=== PATIENT | female | born 2005 ===

== ENCOUNTER 2025-02-19 13:52 | Outpatient (CLI) | payer OTHER | END 2025-02-19 13:54 | disposition home or self-care (01) | LOC: PRENATAL 13:52 | PROVIDERS: ATTEND Obstetrics & Gynecology Maternal & Fetal Medicine | DX: O44.00 Complete placenta previa NOS or without hemorrhage, unspecified trimester (principal); Z3A.20 20 weeks gestation of pregnancy ==

== ENCOUNTER 2025-05-12 13:44 | Outpatient (CLI) | payer OTHER | END 2025-05-12 13:47 | disposition home or self-care (01) | LOC: PRENATAL 13:44 | PROVIDERS: ATTEND Obstetrics & Gynecology Maternal & Fetal Medicine | DX: O35.3XX0 Maternal care for (suspected) damage to fetus from viral disease in mother, not applicable or unspecified (principal); O44.00 Complete placenta previa NOS or without hemorrhage, unspecified trimester; Z3A.32 32 weeks gestation of pregnancy ==

== ENCOUNTER 2025-06-29 19:31 | Inpatient (IN) | payer OTHER ==
[~2025-06-29] VITALS: Ht 167.6 cm; Wt 69.9 kg
[2025-06-29 19:46] VITALS: BP 110/71
[2025-06-29 20:54] LABS: BASO % 0.3 % (0.1-1.2); EOS # 0.02 (0.04-0.54); EOS % 0.2 % (0.7-7.0); LYMPH # 1.66 (1.18-3.74); LYMPH % 15.3 % (19.3-53.1); MEAN PLATELET VOLUME 10.90 fl (9.4-12.4); MONO # 0.85 (0.24-0.82); MONO % 7.8 % (4.7-12.5); NEUT # 8.29 (1.56-6.13); NEUT % 76.1 % (34.0-71.1); RED CELL DISTRIBUTION WIDTH 12.5 % (11.6-14.4); URINE APPEARANCE Clear; URINE BILIRRUBIN Negative (NEGATIVE); URINE BLOOD Negative; URINE COLOR Yellow; URINE GLUCOSE Negative (NEGATIVE); URINE KETONE 15 (NEGATIVE); URINE LEUKOCYTE Negative; URINE NITRATE Negative; URINE PROTEIN Trace (NEGATIVE); URINE UROBILINOGEN 1.0 E.U./dl
[2025-06-29 20:58] LABS: URINE BACTERIA 748.7 uL (0.0-1933); URINE EPITHELIAL CELLS 46.3 uL (0.0-38.8); URINE RBC 13.3 uL (0.0-20.8); URINE WBC 15.0 uL (0.0-23.2)
[2025-06-29 21:08] LABS: URINE CAST 0.14 uL (0.0-1.40)
[2025-06-29 21:11] LABS: URINE MUCUS MODERATE
[2025-06-29 21:12] LABS: TYPE CELLS SQUAMOUS
[2025-06-29 21:15] LABS: INR < 0.93
[2025-06-29] MEDS ORDERED: MISOPROSTOL 25 MCG TABLET VAG STA (22:08)
[2025-06-29 23:27] VITALS: BP 117/70
[2025-06-30 04:00] VITALS: BP 120/75
[2025-06-30] MEDS ORDERED: ERYTHROMYCIN BASE OPHT 1GM EACH TUBE OP ONE (04:35)
[2025-06-30] MEDS ORDERED: LIDOCAINE HCL 1% 10ML VIAL ONE (04:35)
[2025-06-30] MEDS ORDERED: CHLORHEXIDINE GLUCONATE 120 ML BOTTLE TOP ONE (04:35)
[2025-06-30] MEDS ORDERED: OXYTOCIN 20 UNITS/1000ML RL PIGGYBAG IV ONE (04:35)
[2025-06-30] MEDS ORDERED: OXYTOCIN 1,000 ML IV SCH (07:00)
[2025-06-30] MEDS ORDERED: CHLORHEXIDINE GLUCONATE 120 ML BOTTLE TP SCH (07:00)
[2025-06-30] MEDS ORDERED: ACETAMINOPHEN 500 MG GEL..CAP PO PRN (07:00)
[2025-06-30 07:01] VITALS: BP 119/51
[2025-06-30 07:46] VITALS: BP 127/73
[2025-06-30] MEDS ORDERED: PNV,CALCIUM 72/IRON/FOLIC ACID 1 TAB TABLET PO SCH (09:00)
[2025-06-30 11:17] VITALS: BP 107/57
[2025-06-30 11:59] LABS: BASO % 0.1 % (0.1-1.2); EOS # 0.00 (0.04-0.54); EOS % 0.0 % (0.7-7.0); LYMPH # 0.85 (1.18-3.74); LYMPH % 4.4 % (19.3-53.1); MEAN PLATELET VOLUME 10.90 fl (9.4-12.4); MONO # 1.56 (0.24-0.82); MONO % 8.1 % (4.7-12.5); NEUT # 16.78 (1.56-6.13); NEUT % 86.9 % (34.0-71.1); RED CELL DISTRIBUTION WIDTH 12.6 % (11.6-14.4)
[2025-06-30 16:29] VITALS: BP 108/67
[2025-07-01 00:34] VITALS: BP 108/60
[2025-07-01 08:30] VITALS: BP 112/68
[2025-07-01] MEDS ORDERED: FF) RHO(D) IMMUNE GLOBULIN (POM) IM NR (12:00)
[2025-07-01 19:07] VITALS: BP 118/70
[2025-07-02] VITALS: BP 92/52
[2025-07-02 08:22] VITALS: BP 106/65
== END 2025-07-02 12:40 | disposition home or self-care (01) | DRG 807 ==
LOC: OB/GYN 19:31 → LDR 19:31 → OB/GYN 06-30 07:45
PROVIDERS: ADMIT Obstetrics & Gynecology; ATTEND Obstetrics & Gynecology
PROC: 3E0P7VZ Introduction of Hormone into Female Reproductive, Via Natural or Artificial Opening (ICD-10-PCS; 2025-06-29)
PROC: 4A1HXCZ Monitoring of Products of Conception, Cardiac Rate, External Approach (ICD-10-PCS; 2025-06-29)
PROC: 10E0XZZ Delivery of Products of Conception, External Approach (ICD-10-PCS; principal; 2025-06-30)
PROC: 3E033VJ Introduction of Other Hormone into Peripheral Vein, Percutaneous Approach (ICD-10-PCS; 2025-06-30)
DX: O80 Encounter for full-term uncomplicated delivery (principal); Z37.0 Single live birth; Z3A.39 39 weeks gestation of pregnancy